=== PATIENT | male | born 1980 | race American Indian/Alaskan Native ===

== ENCOUNTER 2019-01-03 05:28 | Emergency (ER) | payer SELFPAY ==
[2019-01-03 05:36] VITALS: BP 155/108
--- NOTE | 2019-01-03 08:27 | Emergency Department Report ---
ED Back Pain/Injury HPI - General Chief Complaint: Back Pain/Injury Stated Complaint: BACK PAIN Time Seen by Provider: 01/03/19 07:59 Source: patient Limitations: No Limitations - History of Present Illness MD Complaint: back pain -: Gradual, days(s) Similar Symptoms Previously: Yes Place: home Radiation: none Severity: mild Quality: aching Worsens With: movement Associated Symptoms: denies other symptoms Treatments Prior to Arrival: NSAIDS - Related Data Previous Rx's Medication Instructions Recorded Last Taken Type Cyclobenzaprine [Flexeril] 10 mg PO TID PRN #10 tablet 01/03/19 Unknown Rx predniSONE [Deltasone] 20 mg PO DAILY #5 tablet 01/03/19 Unknown Rx Allergies Allergy/AdvReac Type Severity Reaction Status Date / Time No Known Allergies Allergy Unverified 01/03/19 05:36 ED Review of Systems ROS: Stated complaint: BACK PAIN Other details as noted in HPI Comment: All other systems reviewed and negative Constitutional: denies: chills Eyes: denies: eye pain Respiratory: denies: cough Cardiovascular: denies: chest pain Gastrointestinal: denies: abdominal pain Genitourinary: denies: as per HPI, urgency, dysuria, frequency, hematuria, discharge Musculoskeletal: as per HPI, back pain Skin: denies: rash Neurological: denies: headache Psychiatric: denies: anxiety Hematological/Lymphatic: denies: easy bleeding ED Past Medical Hx - Past Medical History Medical history: hypertension ED Back Pain Physical Exam - Exam General: Vital signs noted. No distress. Alert and acting appropriately. Back/Abdomen: Yes Straight Leg Raise Pain, No Abdominal Tenderness, No Perithoracic Tenderness, No Perilumbar Tenderness, No Sacroiliac Tenderness, No Flank Tenderness Neuro: Yes Normal Sensation, Yes Normal DTR's, Yes Normal Gait, No Motor Weakness ED Course Vital Signs 01/03/19 05:32 Temperature 98.0 F Pulse Rate 72 Respiratory 18 Rate Blood Pressure 155/108 O2 Sat by Pulse 100 Oximetry ED Medical Decision Making - Medical Decision Making Labs 01/03/19 08:50 Urine Color Yellow Urine Turbidity Clear Urine pH 5.0 Ur Specific [place] 1.015 Urine Protein <15 mg/dl Urine Glucose (UA) Neg Urine Ketones Neg Urine Blood Neg Urine Nitrite Neg Urine Bilirubin Neg Urine Urobilinogen < 2.0 Ur Leukocyte Esterase Neg Urine WBC (Auto) 1.0 Urine RBC (Auto) < 1.0 U Epithel Cells (Auto) < 1.0 CO BACK PAIN WITH NO TRAUMA PAIN IS LOW THORACIC HIGH LUMBAR LIFTS ITEMS AT WORK AMBULATORY NO S/S CAUDA EQUINA NO URINARY SYMPTOMS MEDICATED FOR PAIN IN ED WITH RELIEF BP INC PT HAS HX BACK PAIN BUT IS NOT ON MEDS WE DISCUSSED BP, DIET AND FOLLOW UP PROVIDER TOOK BP ON DC 150/90 Vital Signs 01/03/19 05:32 Temperature 98.0 F Pulse Rate 72 Respiratory 18 Rate Blood Pressure 155/108 O2 Sat by Pulse 100 Oximetry DC HOME W DC PLAN OF CARE AND FOLLOW UP Critical care attestation.: If time is entered above; I have spent that time in minutes in the direct care of this critically ill patient, excluding procedure time. ED Disposition Clinical Impression: Back pain, Elevated blood pressure reading Disposition: DC-01 TO HOME OR SELFCARE Is pt being admited?: No Does the pt Need Aspirin: No Condition: Stable Instructions: Low Back Strain (ED) Additional Instructions: rest hydrate well with water meds as ordered do not drive while taking urine analysis normal today follow up pcp referral below diet as tolerated activity as tolerated good body mechanics monitor your blood pressure and be sure this goes down. Prescriptions: Cyclobenzaprine [Flexeril] 10 mg PO TID PRN #10 tablet PRN Reason: Muscle Spasm predniSONE [Deltasone] 20 mg PO DAILY #5 tablet Referrals: RAGHU BELL MD [Primary Care Provider] - 3-5 Days Forms: Work/School Release Form(ED) Time of Disposition: 09:36
[2019-01-03] MEDS ORDERED: DECADRON IM ONE (08:35)
[2019-01-03] MEDS ORDERED: FLEXERIL PO ONE (08:35)
[2019-01-03 09:28] LABS: Bilirubin,Urine NEG (Negative); Blood,Urine NEG (Negative); Color,Urine Yellow (Yellow); Protein,Urine <15 mg/dL mg/dL (Negative); RBC,Urine < 1.0 /HPF (0.0-6.0); Urobilinogen,Urine < 2.0 mg/dL (<2.0)
== END 2019-01-03 10:27 | disposition home or self-care (01) ==
LOC: ED 05:28
DX: M54.9 Dorsalgia, unspecified (principal); R03.0 Elevated blood-pressure reading, without diagnosis of hypertension
CPT/HCPCS: 81001; 96372; 99283; J1100